=== PATIENT | female | born 1995 | race Two or more races ===

== ENCOUNTER 2017-12-13 14:46 | Emergency (ER) | payer MEDICAID, OTHER ==
[~2017-12-13] VITALS: Ht 152.4 cm; Wt 74.0 kg
[2017-12-13 15:48] LABS: BASOPHILS # (AUTO) 0.06 x10^3/uL (0-0.1); BASOPHILS % (AUTO) 1 % (0-1); EOSINOPHILS % (AUTO) 2 % (1-7); LYMPHOCYTES # (AUTO) 2.18 x10^3/uL (1-3.4); LYMPHOCYTES % (AUTO) 24 % (22-44); MD NO; MEAN CORPUSCULAR HEMOGLOBIN 28.4 pg (27.0-34.8); MEAN CORPUSCULAR HGB CONC 33.5 g/dL (32.4-35.8); MEAN CORPUSCULAR VOLUME 84.8 fL (80-100); MEAN PLATELET VOLUME 8.4 fL (7.4-10.4); MONOCYTES # (AUTO) 0.56 x10^3/uL (0.2-0.8); MONOCYTES % (AUTO) 6 % (2-9); NEUTROPHILS # (AUTO) 6.16 x10^3/uL (1.8-6.8); NEUTROPHILS % (AUTO) 67 % (42-75); PLATELET COUNT 290 x10^3/uL (130-400); RED BLOOD COUNT 4.76 x10^6/uL (3.82-5.3); RED CELL DISTRIBUTION WIDTH 14.5 % (9.6-15.2)
[2017-12-13 16:02] LABS: ALANINE AMINOTRANSFERASE 34 U/L (12-78); ALBUMIN 3.7 g/dL (3.4-5.0); ANION GAP 9 mmol/L (5-15); CALCIUM 8.7 mg/dL (8.5-10.1); CHLORIDE 106 mmol/L (98-107); CREATININE 0.71 mg/dL (0.55-1.02)
[2017-12-13 16:07] LABS: ALKALINE PHOSPHATASE 83 U/L (45-117); BILIRUBIN,TOTAL 0.3 mg/dL (0.2-1.0); TOTAL PROTEIN 8.3 g/dL (6.4-8.2)
[2017-12-13] MEDS ORDERED: MAALOX/HYOSCYAMINE/LIDOCAINE 45 ML BTL PO ONE (16:30)
[2017-12-13] MEDS ORDERED: MAALOX/HYOSCYAMINE/LIDOCAINE 45 ML BTL ONE (16:40)
[2017-12-13 17:11] LABS: MICROSCOPIC NOT IND
[2017-12-13 17:15] LABS: CULTURE INDICATED? NO
[2017-12-13 17:22] LABS: CLUE CELLS PRESENT (NONE SEEN)
[2017-12-13 17:23] LABS: WET PREP WBCS FEW (FEW)
[2017-12-13 17:46] VITALS: BP 105/66
== END 2017-12-13 17:48 | disposition home or self-care (01) ==
LOC: ED 17:30
DX: N76.0 Acute vaginitis (principal)
CPT/HCPCS: 36415; 80053; 81003; 83690; 84703; 85025; 87210; 87491; 87591; 87808; 99284

== ENCOUNTER 2019-02-23 14:14 | Emergency (ER) | payer MEDICAID ==
[~2019-02-23] VITALS: Ht 152.4 cm; Wt 78.2 kg
--- NOTE | 2019-02-23 14:40 | NUR ---
pt ambulated to x ray with a steady gait.
[2019-02-23 16:34] VITALS: BP 120/69
== END 2019-02-23 16:35 | disposition home or self-care (01) ==
LOC: ED 14:52
DX: K59.00 Constipation, unspecified (principal); F17.200 Nicotine dependence, unspecified, uncomplicated
CPT/HCPCS: 74018; 99283

== ENCOUNTER 2020-07-01 13:04 | Emergency (ER) | payer MEDICAID ==
[~2020-07-01] VITALS: Ht 160 cm; Wt 74.3 kg
--- NOTE | 2020-07-01 13:52 | NUR ---
FACS TEACHER: PT TO ROOM FROM LOBBY
[2020-07-01 14:50] LABS: BASOPHILS # (AUTO) 0.04 x10^3/uL (0-0.1); BASOPHILS % (AUTO) 0 % (0-1); EOSINOPHILS # (AUTO) 0.07 x10^3/uL (0-0.4); EOSINOPHILS % (AUTO) 1 % (1-7); LYMPHOCYTES # (AUTO) 1.51 x10^3/uL (1-3.4); LYMPHOCYTES % (AUTO) 18 % (22-44); MD NO; MEAN CORPUSCULAR HEMOGLOBIN 29.1 pg (27.0-34.8); MEAN CORPUSCULAR HGB CONC 33.4 g/dL (32.4-35.8); MEAN PLATELET VOLUME 8.6 fL (7.4-10.4); MONOCYTES # (AUTO) 0.68 x10^3/uL (0.2-0.8); MONOCYTES % (AUTO) 8 % (2-9); NEUTROPHILS # (AUTO) 6.27 x10^3/uL (1.8-6.8); NEUTROPHILS % (AUTO) 73 % (42-75); PLATELET COUNT 256 x10^3/uL (130-400); RED BLOOD COUNT 4.33 x10^6/uL (3.82-5.3); RED CELL DISTRIBUTION WIDTH 14.3 % (9.6-15.2)
[2020-07-01 14:57] LABS: MICROSCOPIC INDICATED
[2020-07-01 14:59] LABS: ALANINE AMINOTRANSFERASE 23 U/L (12-78); ALBUMIN 3.3 g/dL (3.4-5.0); ANION GAP 6 mmol/L (5-15); CALCIUM 8.6 mg/dL (8.5-10.1); CHLORIDE 108 mmol/L (98-107); CREATININE 0.66 mg/dL (0.55-1.02)
[2020-07-01] MEDS ORDERED: SODIUM CHLORIDE FLUSH 10ML SYR IVF ONE (15:00)
[2020-07-01 15:06] VITALS: BP 97/65
--- NOTE | 2020-07-01 15:07 | NUR ---
PT RESTING IN [facility]. NAD. VSS.
[2020-07-01 15:16] LABS: ALKALINE PHOSPHATASE 55 U/L (45-117); BILIRUBIN,TOTAL 0.3 mg/dL (0.2-1.0); TOTAL PROTEIN 7.4 g/dL (6.4-8.2)
== END 2020-07-01 16:55 ==
LOC: ED 16:49
DX: O99.611 Diseases of the digestive system complicating pregnancy, first trimester (principal); K59.00 Constipation, unspecified; R82.71 Bacteriuria; R10.13 Epigastric pain; R11.0 Nausea; R10.2 Pelvic and perineal pain; Z3A.08 8 weeks gestation of pregnancy
CPT/HCPCS: 36415; 76700; 76801; 80053; 81001; 83690; 84702; 85025; 87086; 99285

== ENCOUNTER 2020-08-15 08:26 | Emergency (ER) | payer MEDICAID ==
[~2020-08-15] VITALS: Ht 152.4 cm; Wt 72.0 kg
[2020-08-15 08:32] VITALS: BP 103/70
--- NOTE | 2020-08-15 09:41 | NUR ---
Patient/Caregiver given discharge instructions and they have confirmed that they understand the instructions. Patient ambulatory with steady gait.
== END 2020-08-15 09:43 | disposition home or self-care (01) ==
LOC: ED 09:04
DX: O98.512 Other viral diseases complicating pregnancy, second trimester (principal); B34.9 Viral infection, unspecified; Z20.828 Contact with and (suspected) exposure to other viral communicable diseases; Z3A.15 15 weeks gestation of pregnancy; Z87.891 Personal history of nicotine dependence
CPT/HCPCS: 36415; 87635; 99283

== ENCOUNTER 2021-01-30 14:03 | Outpatient (CLI) | payer MEDICAID | END 2021-01-30 23:59 | disposition home or self-care (01) | LOC: STAR 14:03 | PROVIDERS: ATTEND Obstetrics & Gynecology | DX: Z20.822 Contact with and (suspected) exposure to COVID-19 (principal) | CPT/HCPCS: U0003 ==

== ENCOUNTER 2021-02-03 03:01 | Inpatient (IN) | payer MEDICAID ==
[~2021-02-03] VITALS: Ht 152.4 cm; Wt 83.5 kg
[2021-02-03 05:57] LABS: BASOPHILS % (AUTO) 1 % (0-1); EOSINOPHILS % (AUTO) 1 % (1-7); LYMPHOCYTES % (AUTO) 26 % (22-44); MD NO; MEAN CORPUSCULAR HEMOGLOBIN 23.3 pg (27.0-34.8); MEAN CORPUSCULAR HGB CONC 31.8 g/dL (32.4-35.8); MEAN PLATELET VOLUME 8.9 fL (7.4-10.4); MONOCYTES % (AUTO) 8 % (2-9); NEUTROPHILS % (AUTO) 65 % (42-75); PLATELET COUNT 173 x10^3/uL (130-400); RED BLOOD COUNT 4.04 x10^6/uL (3.82-5.3); RED CELL DISTRIBUTION WIDTH 16.7 % (9.6-15.2)
[2021-02-03] MEDS ORDERED: CEFAZOLIN PMX 1GM/50ML 50 ML IVPB ONE (06:00)
[2021-02-03] MEDS ORDERED: AZITHROMYCIN 500 MG in SODIUM CHLORIDE 0.9% 250 ML IV ONE (06:00)
[2021-02-03] MEDS ORDERED: METOCLOPRAMIDE 5 MG/ML, 2ML IV ONE (06:00)
[2021-02-03] MEDS ORDERED: SODIUM CITRATE/CITRIC ACID 30 ML UDC PO ONE (06:00)
[2021-02-03] MEDS ORDERED: CALCIUM CARBONATE 500 MG TAB.CHEW PO PRN (06:00)
[2021-02-03] MEDS ORDERED: LACTATED RINGERS 1,000 ML IVBOLUS ONE (06:00)
[2021-02-03] MEDS ORDERED: ONDANSETRON 2MG/ML, 2ML IVPush ONE (06:00)
[2021-02-03 06:02] VITALS: BP 103/66
[2021-02-03] MEDS ORDERED: OXYTOCIN 30U/ 0.9% NaCL 500ML 500 ML ONE (06:25)
[2021-02-03] MEDS ORDERED: SODIUM CITRATE/CITRIC ACID 15 ML UDC ONE (06:26)
[2021-02-03] MEDS ORDERED: METOCLOPRAMIDE 5 MG/ML, 2ML ONE (06:26)
[2021-02-03] MEDS ORDERED: CEFAZOLIN 1,000 MG ONE (07:24)
[2021-02-03] MEDS ORDERED: EPHEDRINE 50 MG/ML, 1ML ONE (07:24)
[2021-02-03] MEDS ORDERED: OXYTOCIN 10 UNITS/ML, 1ML ONE (07:24)
[2021-02-03] MEDS ORDERED: KETOROLAC 30 MG/1 ML ONE (07:24)
[2021-02-03] MEDS ORDERED: PHENYLEPHRINE 10 MG/ML ONE (07:24)
[2021-02-03] MEDS ORDERED: DEXAMETHASONE 4 MG/ML, 1ML ONE (07:24)
[2021-02-03] MEDS ORDERED: HYDROmorphone 2 MG/ML, 1ML ONE (07:24)
[2021-02-03] MEDS ORDERED: FENTANYL PF 100 MCG/2ML ONE (07:24)
[2021-02-03] MEDS ORDERED: ONDANSETRON 2MG/ML, 2ML ONE (07:24)
[2021-02-03] MEDS ORDERED: OXYcodone 5 MG/5 ML ORAL.SOL UDC PO PRN (07:30)
[2021-02-03] MEDS ORDERED: MIDAZOLAM 1 MG/ML, 2ML IV PRN (07:30)
[2021-02-03] MEDS ORDERED: LABETALOL 5MG/ML, 20ML IV PRN (07:30)
[2021-02-03] MEDS ORDERED: hydrALAzine 20 MG/ML, 1ML IV PRN (07:30)
[2021-02-03] MEDS ORDERED: PROMETHAZINE 25 MG/ML, 1ML IV PRN (07:30)
[2021-02-03] MEDS ORDERED: HYDROcodone/APAP 7.5-325MG/15ML UDC PO PRN (07:30)
[2021-02-03] MEDS ORDERED: EPHEDRINE 50 MG/ML, 1ML IVPush PRN (07:30)
[2021-02-03] MEDS ORDERED: METOPROLOL 1 MG/ML, 5ML IV PRN (07:30)
[2021-02-03] MEDS ORDERED: ALBUTEROL SULFATE 2.5 MG/3 ML NPPB PRN (07:30)
[2021-02-03] MEDS ORDERED: HYDROmorphone 2 MG/ML, 1ML IVPush PRN (07:30)
[2021-02-03] MEDS ORDERED: ONDANSETRON 2MG/ML, 2ML IVPush PRN (07:30)
[2021-02-03] MEDS ORDERED: FENTANYL PF 100 MCG/2ML IV PRN (07:30)
[2021-02-03] MEDS ORDERED: MEPERIDINE/PF 25MG/0.5ML IVPush PRN (07:30)
[2021-02-03] MEDS ORDERED: NEWBORN KIT ONE (07:54)
[2021-02-03] MEDS ORDERED: ONDANSETRON 2MG/ML, 2ML IV PRN (09:00)
[2021-02-03] MEDS ORDERED: OXYcodone IR 5MG TABLET PO PRN (09:00)
[2021-02-03] MEDS: LACTATED RINGERS 1,000 ML IV SCH ×2 (09:00→11:09)
[2021-02-03] MEDS ORDERED: LACTATED RINGERS 1,000 ML IV SCH (09:00)
[2021-02-03] MEDS: PRENATAL VIT/IRON/FA 1 EACH TABLET PO SCH (09:00)
[2021-02-03] MEDS ORDERED: MISOPROSTOL 200 MCG TABLET PR PRN (09:00)
[2021-02-03] MEDS ORDERED: ACETAMINOPHEN 325 MG TABLET PO SCH (09:00)
[2021-02-03] MEDS: OXYTOCIN 30U/ 0.9% NaCL 500ML 500 ML IV SCH ×2 (09:00→11:14)
[2021-02-03 10:30] VITALS: BP 107/69
[2021-02-03 11:00] VITALS: BP 109/67
[2021-02-03] MEDS: SIMETHICONE 80 MG CHEW TAB PO PRN (11:18)
[2021-02-03 11:25] VITALS: BP 111/70
[2021-02-03 12:41] LABS: BASOPHILS % (AUTO) 0 % (0-1); EOSINOPHILS % (AUTO) 0 % (1-7); LYMPHOCYTES % (AUTO) 5 % (22-44); MEAN CORPUSCULAR HEMOGLOBIN 22.9 pg (27.0-34.8); MEAN CORPUSCULAR HGB CONC 31.5 g/dL (32.4-35.8); MEAN PLATELET VOLUME 8.9 fL (7.4-10.4); MONOCYTES % (AUTO) 2 % (2-9); NEUTROPHILS % (AUTO) 93 % (42-75); PLATELET COUNT 173 x10^3/uL (130-400); RED CELL DISTRIBUTION WIDTH 16.3 % (9.6-15.2)
[2021-02-03] MEDS ORDERED: OXYcodone IR 5MG TABLET PO ONE (13:00)
[2021-02-03 13:32] LABS: MD SCAN
[2021-02-03] MEDS: KETOROLAC 30 MG/1 ML IV SCH ×2 (14:26→20:34)
[2021-02-03] MEDS: morphine SULFATE 10 MG/ML, 1ML IVPush PRN ×2 (14:36→21:43)
[2021-02-03 15:04] VITALS: BP 96/60
[2021-02-03] MEDS: ACETAMINOPHEN 325 MG TABLET PO SCH ×2 (16:57→23:00)
[2021-02-03 18:23] LABS: BASOPHILS % (AUTO) 0 % (0-1); EOSINOPHILS % (AUTO) 0 % (1-7); LYMPHOCYTES % (AUTO) 8 % (22-44); MEAN CORPUSCULAR HEMOGLOBIN 22.9 pg (27.0-34.8); MEAN CORPUSCULAR HGB CONC 31.3 g/dL (32.4-35.8); MONOCYTES % (AUTO) 5 % (2-9); NEUTROPHILS % (AUTO) 88 % (42-75); PLATELET COUNT 172 x10^3/uL (130-400); RED BLOOD COUNT 3.67 x10^6/uL (3.82-5.3); RED CELL DISTRIBUTION WIDTH 17.2 % (9.6-15.2)
[2021-02-03 18:36] LABS: MD NO
[2021-02-03] MEDS: OXYcodone IR 5MG TABLET PO PRN (19:11)
[2021-02-03] MEDS: DOCUSATE 100 MG CAPSULE PO PRN (19:11)
[2021-02-03 19:20] VITALS: BP 104/63
[2021-02-04 00:05] VITALS: BP 92/54
[2021-02-04] MEDS: OXYcodone IR 5MG TABLET PO PRN ×4 (01:09→19:58)
[2021-02-04] MEDS: KETOROLAC 30 MG/1 ML IV SCH ×4 (02:34→20:44)
[2021-02-04 04:00] VITALS: BP 97/59
[2021-02-04] MEDS: LACTATED RINGERS 1,000 ML IV SCH ×2 (05:00→15:00)
[2021-02-04] MEDS: OXYTOCIN 30U/ 0.9% NaCL 500ML 500 ML IV SCH ×2 (05:00→15:00)
[2021-02-04] MEDS: ACETAMINOPHEN 325 MG TABLET PO SCH ×4 (05:13→23:25)
[2021-02-04 05:40] LABS: BASOPHILS % (AUTO) 0 % (0-1); EOSINOPHILS % (AUTO) 1 % (1-7); LYMPHOCYTES % (AUTO) 23 % (22-44); MEAN CORPUSCULAR HEMOGLOBIN 23.3 pg (27.0-34.8); MEAN CORPUSCULAR HGB CONC 32.4 g/dL (32.4-35.8); MEAN PLATELET VOLUME 8.7 fL (7.4-10.4); MONOCYTES % (AUTO) 8 % (2-9); NEUTROPHILS % (AUTO) 68 % (42-75); PLATELET COUNT 162 x10^3/uL (130-400); RED BLOOD COUNT 3.16 x10^6/uL (3.82-5.3); RED CELL DISTRIBUTION WIDTH 16.9 % (9.6-15.2)
[2021-02-04 05:43] LABS: MD NO
[2021-02-04 07:47] VITALS: BP 100/63
[2021-02-04] MEDS: FERROUS SULFATE 325 MG TABLET PO SCH ×2 (07:49→17:25)
[2021-02-04] MEDS: PRENATAL VIT/IRON/FA 1 EACH TABLET PO SCH (07:49)
[2021-02-04] MEDS: DOCUSATE 100 MG CAPSULE PO PRN ×2 (07:49→19:21)
[2021-02-04] MEDS: SIMETHICONE 80 MG CHEW TAB PO PRN ×2 (07:49→19:21)
[2021-02-04 11:05] LABS: BASOPHILS % (AUTO) 0 % (0-1); EOSINOPHILS % (AUTO) 1 % (1-7); LYMPHOCYTES % (AUTO) 25 % (22-44); MEAN CORPUSCULAR HEMOGLOBIN 23.3 pg (27.0-34.8); MEAN CORPUSCULAR HGB CONC 32.1 g/dL (32.4-35.8); MEAN PLATELET VOLUME 8.9 fL (7.4-10.4); MONOCYTES % (AUTO) 8 % (2-9); NEUTROPHILS % (AUTO) 66 % (42-75); PLATELET COUNT 154 x10^3/uL (130-400); RED BLOOD COUNT 3.14 x10^6/uL (3.82-5.3); RED CELL DISTRIBUTION WIDTH 16.8 % (9.6-15.2)
[2021-02-04 11:18] LABS: MD NO
[2021-02-04 19:30] VITALS: BP 99/66
[2021-02-05] MEDS: OXYTOCIN 30U/ 0.9% NaCL 500ML 500 ML IV SCH ×2 (01:00→11:00)
[2021-02-05] MEDS: LACTATED RINGERS 1,000 ML IV SCH ×2 (01:00→11:00)
[2021-02-05] MEDS: OXYcodone IR 5MG TABLET PO PRN ×3 (02:16→13:30)
[2021-02-05] MEDS: KETOROLAC 30 MG/1 ML IV SCH ×2 (03:11→08:36)
[2021-02-05] MEDS: ACETAMINOPHEN 325 MG TABLET PO SCH ×2 (05:06→13:30)
[2021-02-05] MEDS ORDERED: IBUP-1222 PO (05:47)
[2021-02-05] MEDS ORDERED: OXYC5SOL8 PO (05:47)
[2021-02-05] MEDS ORDERED: FERR325T5 PO (05:47)
[2021-02-05] MEDS ORDERED: KETOROLAC 30 MG/1 ML ONE (08:32)
[2021-02-05] MEDS: PRENATAL VIT/IRON/FA 1 EACH TABLET PO SCH (08:37)
[2021-02-05] MEDS: FERROUS SULFATE 325 MG TABLET PO SCH (08:37)
[2021-02-05] MEDS: DOCUSATE 100 MG CAPSULE PO PRN (08:37)
[2021-02-05] MEDS ORDERED: IBUPROFEN 600 MG TABLET PO SCH (09:00)
== END 2021-02-05 15:22 | disposition home or self-care (01) | DRG 787 ==
LOC: LDIP 05:28 → 2NW 10:03
PROVIDERS: ADMIT Student in an Organized Health Care Education/Training Program; ATTEND Student in an Organized Health Care Education/Training Program
PROC: 10D00Z1 Extraction of Products of Conception, Low, Open Approach (ICD-10-PCS; principal; 2021-02-03)
DX: O34.219 Maternal care for unspecified type scar from previous cesarean delivery (principal); D62 Acute posthemorrhagic anemia; Z3A.39 39 weeks gestation of pregnancy; Z37.0 Single live birth; Z82.49 Family history of ischemic heart disease and other diseases of the circulatory system; Z80.41 Family history of malignant neoplasm of ovary; D50.9 Iron deficiency anemia, unspecified; O90.81 Anemia of the puerperium; O99.344 Other mental disorders complicating childbirth
CPT/HCPCS: 36415; 85025; 86592; 86850; 86900; 86923; G0378; J0690; J1100; J1170; J1885; J2405; J3010; J2270; J2370; J2590; J2765; J7120